=== PATIENT | male | born 1955 | race Caucasian/White ===

== ENCOUNTER 2016-12-27 20:41 | Observation (INO) | payer OTHER ==
--- NOTE | 2016-12-27 20:52 | PDOC ---
History of Present Illness - General History Source: Patient Exam Limitations: No Limitations <Destiney Pruitt - Last Filed: 12/27/16 21:22> - General History Source: Patient Exam Limitations: No Limitations - History of Present Illness Beta Erlin given by EMS (Core Measure): No (bradycardia at 53/min) <Genaro Spears I - Last Filed: 12/27/16 22:16> - General Chief Complaint: Chest Pain Stated Complaint: CP/DIZZINESS Time Seen by Provider: 12/27/16 20:43 - History of Present Illness Initial Comments: 12/27/16 21:14 The patient is a 61 year old male, with a significant past medical history of NJ in 2012, 4 stents, hypertension, and hyperlipidemia, who presents to the emergency department with complaints of chest pain and dizziness. The patient reports that today at 6:30pm he began feeling dizzy and experienced some chest pain. He states that the chest pain was midsternal in location and lasted 5-10 minutes before resolving. He reports that his dizziness is a combination of the sensation of the room spinning, him spinning, and feeling as if he is going to pass out. The patient reports that he exercised yesterday and was at his baseline and felt fine. He notes that he has experienced the same symptoms 4 years ago and had his first heart attack at age 37. Upon presentation to the ED his chest pain has resolved but he reports that he is still very dizzy and that the room is spinning. He notices that when he turns his head in either direction the dizziness is worsened. He reports that he experienced shortness of breath when he was walking down the stairs to come into the emergency room. He denies fever, chills, cough, hemoptysis, diaphoresis, nausea, vomit, diarrhea and constipation. PAST MEDICAL HISTORY: reviewed PAST SURGICAL HISTORY: Angioplasty in FAMILY HISTORY: family history of heart attacks SOCIAL HISTORY: Pt lives with family and is employed. Never smoked. MEDICATIONS: reviewed ALLERGIES: bacitracin, bacitracin zinc, neomycin sulfate, polymyxin B General: No fevers or chills, no weakness, no weight loss HEENT: No change in vision. No sore throat,. No ear pain CardioVascular: +Chest pain. +Shortness of breath. Respiratory:No cough, or wheezing. Gastrointestinal: no nausea, vomiting, diarrhea or constipation, No rectal bleeding Genitourinary: No dysuria, hematuria, or frequency Musculoskeletal: No joint or muscle pain or swelling Neurologic: +Dizziness No headache, vertigo or loss of consciousness Psychiatric: no depression Skin: No rashes or easy bruising Endocrine: no increased thirst or abnormal weight change Allergic: no skin or latex allergy All other systems reviewed and normal General: Well nourished well developed individual, no acute distress HEENT: Throat: Normal, tonsils normal, no erythema or exudate Neck: Supple, no meningeal signs, no lymphadenopathy Eyes:Pupils equal reactive and round, extraocular motion intact Chest: Nontender to palpation Cardiac: S1S2 normal, regular rate and rhythm, no murmurs rubs or gallops Respiratory: Lungs clear to auscultation bilateral Abdomen: Soft, nondistended, normal bowel sounds, nontender to palpation diffusely Extremities: Warm, dry, no cyanosis, clubbing, or edema Skin: No rashes Neuro: Alert and oriented x3, nonfocal exam, grossly intact, normal gait Psych: Normal mood and affect (Destiney Pruitt) 12/27/16 22:12 A portion of this note was documented by scribe services under my direction. I have reviewed the details of the note, within reason, and agree with the documentation. The case summary and management plan written by me. EKG sinus bradycardia at a rate of [address]-T wave changes nonspecific T- wave abnormality abnormal EKG however in comparison with prior EKG from a year ago no acute or significant changes Chest x-ray no acute pathology Head CT no acute intracranial pathology Assessment and plan This is a 61-year-old male who comes in complaining of chest pain and dizziness. Patient has an extensive cardiac history with NJ 2 in the past and 4 stents. Patient on exam did have some nystagmus to the left and his dizziness/ vertigo symptoms were exacerbated by movement. Patient had a head CT that was negative for any acute intracranial pathology. I think most likely his dizziness is secondary to vertigo rather than any intracranial pathology. However given patient's extensive cardiac history and a heart score of 4 even though his EKG is unchanged and he is initial troponin is negative patient will be admitted to an observation telemetry bed for additional monitoring and to rule him out. Hospitalist service Dr. Espinoza was contacted and has agreed to the admission. (Genaro Spears I) Past History <Destiney Pruitt - Last Filed: 12/27/16 21:22> - Past Medical History Anemia: No Asthma: No Cancer: No Cardiac Disorders: Yes (NJ & 2011) CVA: No COPD: No CHF: No Dementia: No Diabetes: No GI Disorders: Yes (GERD) Disorders: No HTN: Yes Hypercholesterolemia: Yes Liver Disease: No Seizures: No Thyroid Disease: No - Surgical History Abdominal Surgery: No Appendectomy: No Cardiac Surgery: Yes (ANGIOPLASTY , Stents 2011 & 2012) Cholecystectomy: No Lung Surgery: No Neurologic Surgery: No Orthopedic Surgery: Yes (Microdiscectomy L5-S1) - Psycho/Social/Smoking Cessation Hx Anxiety: No Suicidal Ideation: No Smoking Status: No Smoking History: Never smoked Have you smoked in the past 12 months: No Number of Cigarettes Smoked Daily: 0 Hx Alcohol Use: Yes (3-5/week) Drug/Substance Use Hx: No Substance Use Type: Alcohol Hx Substance Use Treatment: No <Genaro Spears I - Last Filed: 12/27/16 22:16> - Past Medical History Allergies/Adverse Reactions: Allergies Allergy/AdvReac Type Severity Reaction Status Date / Time bacitracin Allergy Verified 06/12/16 06:23 [From Neosporin ([id number])] bacitracin zinc Allergy Verified 06/12/16 06:23 [From Neosporin ([id number])] neomycin sulfate Allergy Verified 06/12/16 06:23 [From Neosporin ([id number])] polymyxin B Allergy Verified 06/12/16 06:23 [From Neosporin ([id number])] Home Medications: Ambulatory Orders Aspirin [ASA -] 325 mg PO DAILY 09/23/11 Carvedilol Phosphate [Coreg Cr -] 10 mg PO DAILY 09/23/11 Rosuvastatin [Crestor -] 30 mg PO DAILY 09/23/11 Trazodone HCl [Desyrel] 100 mg PO HS 09/23/11 Zolpidem Tartrate [Ambien] 2.5 mg PO HS 09/23/11 Esomeprazole Mag Trihydrate [Nexium] 40 mg PO DAILY 10/04/11 Irbesartan [Avapro] 75 mg PO DAILY 01/28/16 Naproxen Sodium [Aleve] 220 mg PO DAILY 12/27/16 Cardiac Specific PMH - Complaint Specific PMHX Pacemaker: No <Genaro Spears I - Last Filed: 12/27/16 22:16> - Vital Signs Last Vital Signs Temp Pulse Resp BP Pulse Ox 98.6 F 47 L 15 196/91 100 12/27/16 20:51 12/27/16 21:49 12/27/16 21:49 12/27/16 21:49 12/27/16 21:19 Heart Score/ECG Review - History History: Slightly suspicious - Electrocardiogram EKG: Non specific repolarization disturbance - Age Age: 45-65 - Risk Factors Risk Factors Heart Score: Yes Hx Hypercholesterolemia, Yes Hx Hypertension, Yes Positive family hx of cardiac disease Based on the list above the patient has:: >/=3 risk factors or Hx atherosclerotic disease - Troponin Troponin: </= normal limit - Score Heart Score - Total: 4 <Genaro Spears I - Last Filed: 12/27/16 22:16> ED Treatment Course - LABORATORY CBC & Chemistry Diagram: 12/27/16 21:01 12/27/16 21:01 <Destiney Pruitt - Last Filed: 12/27/16 21:22> - LABORATORY CBC & Chemistry Diagram: 12/27/16 21:01 12/27/16 21:01 <Genaro Spears I - Last Filed: 12/27/16 22:16> - ADDITIONAL ORDERS Additional order review: Laboratory Results 12/27/16 12/27/16 12/27/16 21:01 21:01 21:01 Sodium 140 Potassium 3.7 Chloride 106 Carbon Dioxide 26 Anion Gap 8 BUN 23 H D Creatinine 1.0 Creat Clearance w eGFR > 60 Random Glucose 98 Calcium 9.2 Total Bilirubin 0.6 D AST 27 D ALT 25 D Alkaline Phosphatase 49 D Creatine Kinase 185 H CK-MB (CK-2) Cancelled Troponin I < 0.03 L Total Protein 7.4 D Albumin 4.4 D 12/27/16 21:01 RBC 4.46 MCV 85.9 MCHC 34.1 RDW 13.5 MPV 8.4 Neutrophils % 65.3 Lymphocytes % 20.6 D Monocytes % 10.8 H Eosinophils % 2.6 Basophils % 0.7 - RADIOLOGY Radiology Studies Ordered: Category Date Time Status HEAD CT WITHOUT CONTRAST [CT] Stat CT Scan 12/27/16 21:02 Taken CHEST X-RAY PORTABLE* [RAD] Stat Radiology 12/27/16 21:02 Taken - Medications Given in the ED: ED Medications Discontinued Medications Generic Name Dose Route Start Last Admin Trade Name Cassidy PRN Reason Stop Dose Admin Meclizine HCl 50 mg 12/27/16 21:00 12/27/16 21:00 Antivert - PO 12/27/16 21:01 50 mg NOW ONE Administration *DC/Admit/Observation/Transfer <Destiney Pruitt - Last Filed: 12/27/16 21:22> - Discharge Dispostion Admit: Yes <Genaro Spears I - Last Filed: 12/27/16 22:16> Diagnosis at time of Disposition: Vertigo Chest pain Qualifiers: Chest pain type: unspecified Qualified Code(s): R07.9 - Chest pain, unspecified - Discharge Dispostion Condition at time of disposition: Stable - Attestations Scribe Attestion: 12/27/16 21:15 Documentation prepared by [employer], acting as medical transcription radiology for Genaro Spears MD. (Destiney Pruitt)
[2016-12-27] MEDS ORDERED: MECLIZINE HCL 25 MG TABLET (FP) ONE (20:57)
[2016-12-27] MEDS ORDERED: MECLIZINE HCL 25 MG TABLET (FP) PO ONE (21:00)
[2016-12-27 21:19] LABS: BASOPHIL 0.7 % (0-2.0); EOSINOPHIL 2.6 % (0-4.5); MCH 29.3 pg (25.7-33.7); MCHC 34.1 g/dl (32.0-35.9); MEAN CELL VOLUME 85.9 fl (80-96); MEAN PLT VOLUME 8.4 fl (7.5-11.1); NEUTROPHILS 65.3 % (42.8-82.8); PLATELET COUNT 193 K/MM3 (134-434); RDW 13.5 % (11.9-15.9); WHITE BLOOD COUNT 6.7 K/mm3 (4.0-10.8)
[2016-12-27 21:44] LABS: ALBUMIN 4.4 g/dl (3.5-5.0); ALK PHOS 49 U/L (32-92); ANION GAP 8 (8-16); BILIRUBIN,TOTAL 0.6 mg/dl (0.2-1.0); CALCIUM 9.2 mg/dl (8.4-10.2); CO2 26 mmol/L (22-28); COCKROFT - GAULT 83.43; GLUCOSE,RANDOM 98 mg/dl (74-106); SGOT/AST 27 U/L (10-42); SGPT/ALT 25 U/L (10-40); TOT PROT 7.4 g/dl (6.4-8.3)
[2016-12-27 21:45] LABS: CPK(DFH) 185 IU/L (38-174)
[2016-12-27 21:55] LABS: TROPONIN I (DFP) < 0.03 ng/ml (0.03-0.50)
[2016-12-27] MEDS ORDERED: amLODIPine BESYLATE 5 MG TABLET (FP) PO ONE (22:11)
[2016-12-27] MEDS ORDERED: amLODIPine BESYLATE 5 MG TABLET (FP) ONE ×2 (22:15→22:16)
[2016-12-27 22:21] LABS: CK MB 3.9 ng/ml (0.3-4.0)
--- NOTE | 2016-12-27 23:15 | HP ---
Admitting History and Physical - Admission Chief Complaint: dizziness History of Present Illness: 60-year-old male with a past medical history of an ID in 2011, and 4 stents, hypertension, and hyperlipidemia, colitis, chronic LBP, who presents to the ER for dizziness. He reports the dizziness is associated with walking and changing positions of his head. He reports feeling sob at one point. He reports burning sensation in his epigastric area. He also reports feeling squeezing sensation in his upper mid chest, 3/10 and states it wasn't "classic CP". He reports associated dry cough. He denies associated nausea, vomiting, diaphoresis, jaw claudication, numbness. He denies syncope, speech changes, double vision, facial droop, extremity weakness. He denies fevers, chills, body aches, runny nose, sore throat, hearing loss, ringing in ears. He reports feeling better after taking Meclizine in the ER. He reports recent dietary indiscretions and eating salty foods for a few days PMH/PSH- CAD, ID in 2011, S/P STENTS MOST RECENT 2.5 YEARS AGO, HTN, HLP, COLITIS, BACK PAIN. SOCIAL- DRINKS 2-3X WEEKLY. DENIES REC DRUGS OR TOBACCO. WORKS A PSYCHIATRIST. FAMHX- DAD- HEART DISEASE, RENAL DZ. MOM- BREAST CANCER. [place]- ORTHOPEDIC TROUBLES PCP- ZACHARIAH RICO CARDS- RAYSA MCDERMOTT ROS neg except for hpi Physical Gen- in nad, alert HENT- at/nc, chester, neck supple, trachea mid-line, mild erythema BL TM, no pharyngeal erythema, eomi Resp- lungs ctab, no rales, no ronchi, no wheezing Cards- S1S2 heard, no JVD, no leg edema, RRR Neuro- CN2-12 grossly intact, speech clear, no facial droop, neg romberg, no ftn ataxia, no dysdodiachokinesia, few beats of horizontal nystagmus Musk- Muscle strength 5/5 BUE/BLE, normal arom bue/ble Skin- no lesions, no erythema Gi- soft non-tender, no guarding, no rebound, no rigidity, no distention Psych- cooperative, no agitation Prob list Dizziness HTN CAD CP GERD IMaging: CXR reviewed ECG- Sinus sharon 54, nonspecific T wave abnormality, NO ELENA/STD A/P- 60-year-old male with a past medical history of an ID in 2011, and 4 stents , hypertension, and hyperlipidemia, colitis, chronic LBP, who presents to the ER for dizziness placed in obs for evaluation of their emergent condition 1. Dizziness ?labyrinthitis ? BPPV ?TIA CTH negative for acute process Given Meclizine 50mg in ER w good effect Neuro exam benign Neuro checks Prn Meclizine FU neurology consult 2. CP atypical, ? GERD, ?MUSK v R/O ACS 1st Trop negative CXR appears negative on by my eye Cycle trops Cardiac telemetry 3. CAD Continue ASA 4. HTN Continue home meds 5. GERD Cont Nexium 6. HLP Continue Statin DVT prophy SCD, OOB, likely less than 2 day stay FEN Heart healthy Dispo- obs for CP R/O History Source: Patient, Family Member Limitations to Obtaining History: No Limitations - Smoking History Smoking history: Never smoked Have you smoked in the past 12 months: No Aproximately how many cigarettes per day: 0 - Alcohol/Substance Use Hx Alcohol Use: Yes (3-5/week) Home Medications - Allergies Allergies/Adverse Reactions: Allergies Allergy/AdvReac Type Severity Reaction Status Date / Time bacitracin Allergy Verified 06/12/16 06:23 [From Neosporin ([id number])] bacitracin zinc Allergy Verified 06/12/16 06:23 [From Neosporin ([id number])] neomycin sulfate Allergy Verified 06/12/16 06:23 [From Neosporin ([id number])] polymyxin B Allergy Verified 06/12/16 06:23 [From Neosporin ([id number])] - Home Medications Home Medications: Ambulatory Orders Aspirin [ASA -] 325 mg PO DAILY 09/23/11 Carvedilol Phosphate [Coreg Cr -] 10 mg PO DAILY 09/23/11 Rosuvastatin [Crestor -] 30 mg PO DAILY 09/23/11 Trazodone HCl [Desyrel] 100 mg PO HS 09/23/11 Zolpidem Tartrate [Ambien] 2.5 mg PO HS 09/23/11 Esomeprazole Mag Trihydrate [Nexium] 40 mg PO DAILY 10/04/11 Irbesartan [Avapro] 75 mg PO DAILY 01/28/16 Naproxen Sodium [Aleve] 220 mg PO DAILY 12/27/16 Meclizine HCl 25 mg PO TID #30 tablet 12/28/16 Physical Examination Vital Signs: Vital Signs Temperature 98.6 F 12/27/16 20:51 Pulse Rate 50 L 12/27/16 22:15 Respiratory Rate 15 12/27/16 21:49 Blood Pressure 182/94 12/27/16 22:15 O2 Sat by Pulse Oximetry (%) 100 12/27/16 21:19 Visit type - Emergency Visit Emergency Visit: Yes ED Registration Date: 12/27/16 Care time: The patient presented to the Emergency Department on the above date and was hospitalized for further evaluation of their emergent condition. - New Patient This patient is new to me today: Yes Date on this admission: 12/28/16 - Critical Care Critical Care patient: No
[2016-12-27] MEDS ORDERED: ACETAMINOPHEN 325 MG TABLET (FP) PO PRN (23:31)
[2016-12-27] MEDS ORDERED: traMADol HCL 50 MG TABLET PO PRN (23:32)
[2016-12-27] MEDS ORDERED: ONDANSETRON 4 MG/2 ML VIAL IVPB PRN (23:32)
[2016-12-27] MEDS ORDERED: MECLIZINE HCL 25 MG TABLET (FP) PO PRN (23:34)
[2016-12-27 23:46] VITALS: BMI 23.9
[2016-12-28] MEDS ORDERED: ZOLPIDEM TARTRATE 5 MG TABLET PO ONE (00:01)
[2016-12-28] MEDS ORDERED: traZODone HCL 100 MG TABLET (FP) PO ONE (00:02)
[2016-12-28] MEDS ORDERED: ROSUVASTATIN CA 10 MG TABLET (FP) PO ONE (00:03)
[2016-12-28] MEDS ORDERED: traZODone HCL 50 MG TABLET (FP) ONE (00:12)
[2016-12-28 01:13] LABS: URINE APPEARANCE CLEAR; URINE BILIRUBIN NEGATIVE (NEGATIVE); URINE BLOOD NEGATIVE (NEGATIVE); URINE COLOR STRAW; URINE GLUCOSE (UA) NEGATIVE (NEGATIVE); URINE KETONE NEGATIVE (NEGATIVE); URINE LEUK ESTERASE NEGATIVE (NEGATIVE); URINE NITRITE NEGATIVE (NEGATIVE); URINE PROTEIN NEGATIVE (NEGATIVE); URINE UROBILINOGEN NEGATIVE E.U./dl (0.2-1.0)
[2016-12-28 08:00] LABS: BASOPHIL 0.6 % (0-2.0); EOSINOPHIL 2.9 % (0-4.5); MCH 30.1 pg (25.7-33.7); MCHC 34.6 g/dl (32.0-35.9); MEAN CELL VOLUME 87.1 fl (80-96); MEAN PLT VOLUME 8.5 fl (7.5-11.1); NEUTROPHILS 69.8 % (42.8-82.8); PLATELET COUNT 177 K/MM3 (134-434); RDW 13.4 % (11.9-15.9); WHITE BLOOD COUNT 6.3 K/mm3 (4.0-10.8)
[2016-12-28 08:11] LABS: CPK(DFH) 146 IU/L (38-174)
[2016-12-28 09:03] LABS: ANION GAP 9 (8-16); CO2 25 mmol/L (22-28); CREATININE 1.1 mg/dl (0.6-1.3); GLUCOSE,RANDOM 87 mg/dl (74-106)
[2016-12-28 09:05] LABS: TROPONIN I (DFP) < 0.03 ng/ml (0.03-0.50)
[2016-12-28] MEDS ORDERED: LOSARTAN POTASSIUM 50 MG TABLET (FP) PO SCH (10:00)
[2016-12-28] MEDS ORDERED: PANTOPRAZOLE 40 MG TABLET (FP) PO SCH (10:00)
[2016-12-28] MEDS ORDERED: ASPIRIN 325 MG TABLET PO SCH (10:00)
[2016-12-28] MEDS ORDERED: CARVEDILOL PHOSPHATE CR 10 MG CAPSULE PO SCH ×3 (10:00→23:00)
--- NOTE | 2016-12-28 11:54 | PN ---
Physical Exam: SUBJECTIVE: Patient seen and examined. Still has dizziness with movement, none at rest. States symptoms have improved with initiation of meclizine. OBJECTIVE: Observation day #1 for this 61 year old male with a history of HTN, HLD, CAD s/p stents x 4, colitis, and chronic LBP who presented with dizziness. Trops neg x 3, EKG non-ischemic. Bradycardic overnight, but states 40s-50s is normal for him. Vital Signs Period Temp Pulse Resp BP Sys/Capps Pulse Ox Last 24 Hr 98.1 F-98.3 F 53-55 16-18 137-166/49-78 99-99 GENERAL: The patient is awake, alert, and fully oriented, in no acute distress. HEAD: Normal with no signs of trauma. EYES: PERRL, extraocular movements intact, sclera anicteric, conjunctiva clear. No ptosis. ENT: Ears normal, nares patent, oropharynx clear without exudates, moist mucous membranes. NECK: Trachea midline, full range of motion, supple. LUNGS: Breath sounds equal, clear to auscultation bilaterally, no wheezes, no crackles, no accessory muscle use. HEART: Regular rate and rhythm, S1, S2 without murmur, rub or gallop. ABDOMEN: Soft, nontender, nondistended, normoactive bowel sounds, no guarding, no rebound, no hepatosplenomegaly, no masses. EXTREMITIES: 2+ pulses, warm, well-perfused, no edema. NEUROLOGICAL: Cranial nerves II through XII grossly intact. Normal speech, gait not observed. No dysarthria, dysmetria, or dysdiadochokinesis. Some lateral nystagmus. PSYCH: Normal mood, normal affect. SKIN: Warm, dry, normal turgor, no rashes or lesions noted Laboratory Results - last 24 hr 12/28/16 12/28/16 12/28/16 00:19 02:00 06:40 WBC 6.3 RBC 4.22 Hgb 12.7 Hct 36.8 MCV 87.1 MCHC 34.6 RDW 13.4 Plt Count 177 MPV 8.5 Neutrophils % 69.8 Lymphocytes % 19.4 Monocytes % 7.3 Eosinophils % 2.9 Basophils % 0.6 Sodium Potassium Chloride Carbon Dioxide Anion Gap BUN Creatinine Random Glucose Calcium Creatine Kinase Troponin I < 0.02 Urine Color Straw Urine Appearance Clear Urine pH 7.0 Urine Protein Negative Urine Glucose (UA) Negative Urine Ketones Negative Urine Blood Negative Urine Nitrite Negative Urine Bilirubin Negative Urine Urobilinogen Negative Ur Leukocyte Esterase Negative 12/28/16 12/28/16 06:40 06:40 WBC RBC Hgb Hct MCV MCHC RDW Plt Count MPV Neutrophils % Lymphocytes % Monocytes % Eosinophils % Basophils % Sodium 143 Potassium 4.3 Chloride 109 H Carbon Dioxide 25 Anion Gap 9 BUN 19 H Creatinine 1.1 Random Glucose 87 Calcium 9.0 Creatine Kinase 146 Troponin I < 0.03 L Urine Color Urine Appearance Urine pH Urine Protein Urine Glucose (UA) Urine Ketones Urine Blood Urine Nitrite Urine Bilirubin Urine Urobilinogen Ur Leukocyte Esterase Active Medications Generic Name Dose Route Start Last Admin Trade Name Freq PRN Reason Stop Dose Admin Acetaminophen 650 mg 12/27/16 23:31 Tylenol - PO Q4H PRN FEVER OR PAIN Aspirin 325 mg 12/28/16 10:00 12/28/16 10:02 Asa - PO 325 mg DAILY RACHEL Administration Carvedilol 10 mg 12/28/16 22:00 Coreg Cr - PO DAILY RACHEL Losartan Potassium 50 mg 12/28/16 10:00 12/28/16 10:01 Cozaar - PO 50 mg DAILY RACHEL Administration Meclizine HCl 25 mg 12/27/16 23:34 Antivert - PO BID PRN VERTIGO Ondansetron HCl 4 mg 12/27/16 23:32 Zofran Injection IVPB Q4H PRN NAUSEA AND/OR VOMITING Pantoprazole Sodium 40 mg 12/28/16 10:00 12/28/16 10:01 Protonix - PO 40 mg DAILY RACHEL Administration Rosuvastatin Calcium 30 mg 12/28/16 23:00 Crestor - PO DAILY RACHEL Tramadol HCl 50 mg 12/27/16 23:32 Ultram - PO Q6H PRN MUSCLE SPASMS Trazodone HCl 100 mg 12/28/16 23:00 Desyrel - PO HS RACHEL Zolpidem Tartrate 2.5 mg 12/28/16 23:00 Ambien - PO HS PRN ASSESSMENT/PLAN: 60-year-old male placed in observation for dizziness. Imaging: CXR: No acute pathology ECG- Sinus sharon 54, nonspecific T wave abnormality HCT: No acute intracranial process 1. NEURO: Dizziness -Differential includes BPPV, also must consider cerebellar stroke in this man with HTN and CAD -HCT negative -Orthostatics negative -Discussed with Dr. Fields- will evaluate patient -Continue Meclizine prn 2. 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 GI: GERD -Cont Nexium 4. F/E/N -Heart healthy diet 5. Ppx -SCDs -OOB Dispo: Pending neuro consult. Visit type - Emergency Visit Emergency Visit: Yes ED Registration Date: 12/27/16 Care time: The patient presented to the Emergency Department on the above date and was hospitalized for further evaluation of their emergent condition. - New Patient This patient is new to me today: Yes Date on this admission: 12/28/16 - Critical Care Critical Care patient: No
[2016-12-28 12:18] VITALS: BP 153/78; PULSE 56
[2016-12-28 13:53] VITALS: TEMP 98.8
--- NOTE | 2016-12-28 14:35 | DS ---
Physical Exam: SUBJECTIVE: Patient seen and examined. See progress note from early today. OBJECTIVE: Vital Signs Period Temp Pulse Resp BP Sys/Capps Pulse Ox Last 24 Hr 98.1 F-98.8 F 53-56 16-18 137-166/49-83 99-99 PHYSICAL EXAM GENERAL: The patient is awake, alert, and fully oriented, in no acute distress. HEAD: Normal with no signs of trauma. EYES: PERRL, extraocular movements intact, sclera anicteric, conjunctiva clear. ENT: Ears normal, nares patent, oropharynx clear without exudates, moist mucous membranes. NECK: Trachea midline, full range of motion, supple. LUNGS: Breath sounds equal, clear to auscultation bilaterally, no wheezes, no crackles, no accessory muscle use. HEART: Regular rate and rhythm, S1, S2 without murmur, rub or gallop. ABDOMEN: Soft, nontender, nondistended, normoactive bowel sounds, no guarding, no rebound, no hepatosplenomegaly, no masses. EXTREMITIES: 2+ pulses, warm, well-perfused, no edema. NEUROLOGICAL: Cranial nerves II through XII grossly intact. Normal speech, gait not observed. Mild lateral nystagmus. PSYCH: Normal mood, normal affect. SKIN: Warm, dry, normal turgor, no rashes or lesions noted. LABS Laboratory Results - last 24 hr 12/28/16 12/28/16 12/28/16 00:19 02:00 06:40 WBC 6.3 RBC 4.22 Hgb 12.7 Hct 36.8 MCV 87.1 MCHC 34.6 RDW 13.4 Plt Count 177 MPV 8.5 Neutrophils % 69.8 Lymphocytes % 19.4 Monocytes % 7.3 Eosinophils % 2.9 Basophils % 0.6 Sodium Potassium Chloride Carbon Dioxide Anion Gap BUN Creatinine Random Glucose Calcium Creatine Kinase Troponin I < 0.02 Urine Color Straw Urine Appearance Clear Urine pH 7.0 Urine Protein Negative Urine Glucose (UA) Negative Urine Ketones Negative Urine Blood Negative Urine Nitrite Negative Urine Bilirubin Negative Urine Urobilinogen Negative Ur Leukocyte Esterase Negative 12/28/16 12/28/16 06:40 06:40 WBC RBC Hgb Hct MCV MCHC RDW Plt Count MPV Neutrophils % Lymphocytes % Monocytes % Eosinophils % Basophils % Sodium 143 Potassium 4.3 Chloride 109 H Carbon Dioxide 25 Anion Gap 9 BUN 19 H Creatinine 1.1 Random Glucose 87 Calcium 9.0 Creatine Kinase 146 Troponin I < 0.03 L Urine Color Urine Appearance Urine pH Urine Protein Urine Glucose (UA) Urine Ketones Urine Blood Urine Nitrite Urine Bilirubin Urine Urobilinogen Ur Leukocyte Esterase HOSPITAL COURSE: This 61 year old male with a history of HTN, HLD, CAD s/p stents x 4, colitis, and chronic LBP who was admitted on 12/27 with dizziness. Hospital course was notable for: -EKG without ischemic changes -Troponins negative x 3 -HCT with no acute intracranial process -Sinus bradycardia, baseline per patient -Symptoms improved with Meclizine. The patient was evaluated by neurology and outpatient MRI brain and angiogram of the posterior fossa was arranged. He is ambulating independently and eager to be discharged. Followup instructions and return precautions were reviewed. Date of Admission:12/27/16 Date of Discharge: 12/28/16 Minutes to complete discharge: 35 Discharge Summary Reason For Visit: CP/DIZZINESS Current Active Problems Chest pain (Acute) Vertigo (Acute) Condition: Improved - Instructions Diet, Activity, Other Instructions: -Rest and stay well-hydrated -Continue all of your prescribed medications -Take Meclizine as needed for dizziness -Obtain your MRI scan as discussed before leaving for vacation -Return here for sudden/severe headache, worsening dizziness, focal weakness, abnormal gait, changes in speech, or any other concerning symptoms Referrals: Logan Fields MD [Staff Physician] - 2 Weeks Disposition: HOME - Home Medications Comprehensive Discharge Medication List: Ambulatory Orders Aspirin [ASA -] 325 mg PO DAILY 09/23/11 Carvedilol Phosphate [Coreg Cr -] 10 mg PO DAILY 09/23/11 Rosuvastatin [Crestor -] 30 mg PO DAILY 09/23/11 Trazodone HCl [Desyrel] 100 mg PO HS 09/23/11 Zolpidem Tartrate [Ambien] 2.5 mg PO HS 09/23/11 Esomeprazole Mag Trihydrate [Nexium] 40 mg PO DAILY 10/04/11 Irbesartan [Avapro] 75 mg PO DAILY 01/28/16 Naproxen Sodium [Aleve] 220 mg PO DAILY 12/27/16 This patient is new to me today: No Emergency Visit: Yes ED Registration Date: 12/27/16 Care time: The patient presented to the Emergency Department on the above date and was hospitalized for further evaluation of their emergent condition. Critical Care patient: No - Discharge Referral Referred to [facility] No
--- NOTE | 2016-12-28 14:52 | CONSULT ---
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 Maintained on carvedilol, amlodipine, losartan, crestor, pantoprazole, ASA ( 325mg) and trazodone and zolpidem for chronic insomnia. Yesterday, during choral rehearsal, he had the sudden onset of dizziness, He felt the environment moving or oscillating. He was unsteady and sl. nauseous. Improved with rest but recurred with movement. Improved on meclizine (but has a foggy feeling in his head today). No tinnitus. No hearing loss. Elevated BP's in the ER CT of head (reviewed): Normal study. Some calcification of the basilar artery. PURNIMA: No bruits. Cor reg. No head trauma. NEURO: MS/Speech: Normal CN II-XII: Few beats of fine, conjugate nysstagmus on R gaze. Otherwise normal Motor: No drift or tremor. Normal strength, tone , bulk and reflexes. Toes are downgoing. No FTN or HTS dystaxia Sensory: Normal. Romberg neg. Gait: Sl wide-based but stable IMP: Non-focal neurological exam. Probably labyrinthitis, Cannot r/o posterior fossa TIA. SUGGEST: OK to D/C on meclizine. Will have MRI and MR Angio as out patient this week. Continue ASA for now. Thank you very much, Logan Fields MD
[2016-12-28] MEDS ORDERED: traZODone HCL 100 MG TABLET (FP) PO SCH (23:00)
[2016-12-28] MEDS ORDERED: ROSUVASTATIN CA 10 MG TABLET (FP) PO SCH (23:00)
[2016-12-28] MEDS ORDERED: ZOLPIDEM TARTRATE 5 MG TABLET PO PRN (23:00)
--- NOTE | 2016-12-30 09:05 | EKG ---
Test Reason : Blood Pressure : / mmHG Vent. Rate : 054 BPM Atrial Rate : 054 BPM P-R Int : 174 ms QRS Dur : 084 ms QT Int : 458 ms P-R-T Axes : 077 031 -15 degrees QTc Int : 434 ms SINUS BRADYCARDIA NONSPECIFIC T WAVE ABNORMALITY NO PREVIOUS ECGS AVAILABLE Confirmed by MD ISMAEL, FABIANO ([id number]) on 12/30/2016 9:05:07 AM Referred By: Brian ADAMS Confirmed By:FABIANO GUEVARA MD
== END 2016-12-28 14:56 | disposition home or self-care (01) ==
LOC: FER 20:41 → FM/S 22:23
PROVIDERS: ADMIT Internal Medicine; ATTEND Registered Nurse Emergency
DX: R07.89 Other chest pain (principal); R42 Dizziness and giddiness; I10 Essential (primary) hypertension; I25.10 Atherosclerotic heart disease of native coronary artery without angina pectoris; I25.2 Old myocardial infarction; E78.5 Hyperlipidemia, unspecified; Z95.5 Presence of coronary angioplasty implant and graft; K21.9 Gastro-esophageal reflux disease without esophagitis; R00.1 Bradycardia, unspecified; Z79.82 Long term (current) use of aspirin; M54.5 Low back pain; G89.29 Other chronic pain
CPT/HCPCS: 36415; 70450-TC; 71010-TC; 80048; 80053; 81003; 82550; 82553; 84484; 85025; 87254; 87804; 93005; 99285-25; G0378

== ENCOUNTER 2017-10-13 10:39 | Emergency (ER) | payer OTHER ==
[2017-10-13 10:48] VITALS: TEMP 98.2; BMI 23.3
[2017-10-13] MEDS ORDERED: SODIUM CHLORIDE 0.9% 1000 ML INFUS.BAG IV ONE (11:39)
--- NOTE | 2017-10-13 11:44 | PDOC ---
History of Present Illness - General Chief Complaint: Chest Pain Stated Complaint: DIZZINESS, CHEST PAIN Time Seen by Provider: 10/13/17 10:43 - History of Present Illness Initial Comments: 10/13/17 11:41 Chief complaint positional lightheadedness History of present illness: This is a 62-year-old gentleman with past medical history significant for coronary artery disease status post DE 2 status post 4 stents, hypertension, positive family history for coronary artery disease presents to the emergency department with several day history of positional lightheadedness. Patient states he feels foggy lightheaded when he stands up. Has checked his blood pressure at home there is been a significant drop in his blood pressure. Patient also complaining of some intermittent chest discomfort. Fleeting few seconds at a time left-sided nonradiating sometimes substernal. No associated nausea or vomiting. Patient has been playing tennis recently and there has been no exertional component to his chest discomfort. Past History - Past Medical History Allergies/Adverse Reactions: Allergies Allergy/AdvReac Type Severity Reaction Status Date / Time bacitracin Allergy Verified 10/13/17 10:41 [From Neosporin ([id number])] bacitracin zinc Allergy Verified 10/13/17 10:41 [From Neosporin ([id number])] neomycin sulfate Allergy Verified 10/13/17 10:41 [From Neosporin ([id number])] polymyxin B Allergy Verified 10/13/17 10:41 [From Neosporin ([id number])] Home Medications: Ambulatory Orders Amlodipine Besylate 5 mg PO BID 10/13/17 Aspirin [Aspirin EC] 325 mg PO DAILY 10/13/17 Carvedilol Phosphate [Coreg Cr -] 10 mg PO DAILY 10/13/17 Esomeprazole Magnesium [Nexium 24Hr] 40 mg PO HS 10/13/17 Irbesartan [Avapro] 150 mg PO DAILY 10/13/17 Meloxicam 15 mg PO HS 10/13/17 Pregabalin [Lyrica] 50 mg PO HS 10/13/17 Rosuvastatin Calcium [Crestor] 40 mg PO DAILY 10/13/17 Trazodone HCl 100 mg PO HS 10/13/17 Anemia: No Asthma: No Cancer: No Cardiac Disorders: Yes (DE & 2011) CVA: No COPD: No CHF: No Dementia: No Diabetes: No GI Disorders: Yes (GERD) Disorders: No HTN: Yes Hypercholesterolemia: Yes Liver Disease: No Seizures: No Thyroid Disease: No Other medical history: BACK PAIN - Surgical History Abdominal Surgery: No Appendectomy: No Cardiac Surgery: Yes (ANGIOPLASTY , Stents 2011 & 2012) Cholecystectomy: No Lung Surgery: No Neurologic Surgery: No Orthopedic Surgery: Yes (Microdiscectomy L5-S1) - Suicide/Smoking/Psychosocial Hx Smoking Status: No Smoking History: Never smoked Have you smoked in the past 12 months: No Number of Cigarettes Smoked Daily: 0 Hx Alcohol Use: (2-3 glasses of wine weekly) Drug/Substance Use Hx: No Substance Use Type: Alcohol Hx Substance Use Treatment: No Review of Systems - Review of Systems Comments:: 10/13/17 11:41 ROS: A complete review of 10 out of 10 review of systems is taken and is negative apart from what is previously mentioned below and in the HPI. *Physical Exam - Vital Signs Last Vital Signs Temp Pulse Resp BP Pulse Ox 98.2 F 50 L 16 124/81 100 10/13/17 10:40 10/13/17 11:30 10/13/17 11:30 10/13/17 11:30 10/13/17 11:30 - Physical Exam Comments: 10/13/17 11:42 62 years old past medical history significant coronary artery disease presents to the ED with orthostatic lightheadedness and atypical chest discomfort Given patient's extensive cardiac history differential diagnosis includes ACS, medication adverse effect, dehydration, orthostasis No PE DVT risk factors We'll obtain EKG blood work hydrate and reassess Heart Score/ECG Review - ECG Impressions Comment:: 10/13/17 11:45 EKG performed at 10:[address] elevations or T-wave inversions. Sinus rhythm rate 54 axis normal. EKG compared to previous EKG no changes noted Interpreted by me ED Treatment Course - LABORATORY CBC & Chemistry Diagram: 10/13/17 11:15 10/13/17 11:15 - RADIOLOGY Radiology Studies Ordered: Category Date Time Status CXRPORT [CHEST X-RAY PORTABLE*] [RAD] Stat Radiology 10/13/17 10:46 Taken Medical Decision Making - Critical Care Time Total Critical Care Time (minutes): 35 Critical Care Statement: The care of this patient involved high complexity decision making to prevent further life threatening deterioration of the patient 's condition and/or to evaluate & treat vital organ system(s) failure or risk of failure. - Medical Decision Making 10/13/17 14:57 62 years old coronary artery disease with stents presents to the ED with positional lightheadedness for the last 10 days. Worse today. Patient instructed blood pressure at home and when he stands up it dips. Patient also mentioned very atypical nonspecific seconds of left-sided chest discomfort no associated nausea vomiting diarrhea does not feel at all like his previous MIs Given his cardiac history we'll check an EKG troponin orthostatics labs hydrate chest x-ray and reassess Reevaluation patient ambulate comfortably around the ED lightheadedness has improved with IV fluids His vital signs were notable for orthostasis His EKG is unchanged from a previous and his troponin is negative. His heart score is 3 given his significant cardiac history we'll send a repeat troponin if negative patient to follow-up tomorrow with his shuttle spotter Troponin negative 2 very atypical chest pain story patient's primary complaint was lightheadedness which correlated with orthostatic hypotension Very low suspicion for cardiac etiology in this patient Patient will follow-up with his shuttle spotter tomorrow Findings, the need for follow-up and strict return instructions discussed with patient. *DC/Admit/Observation/Transfer Diagnosis at time of Disposition: Orthostatic hypotension - Discharge Dispostion Disposition: HOME Condition at time of disposition: Stable Admit: No - Referrals - Patient Instructions Printed Discharge Instructions: Orthostatic Hypotension Additional Instructions: Take all medications as prescribed. Drink plenty fluids. Follow up with the shuttle spotter tomorrow. Return to the emergency department immediately for any severe worsening chest pain severe worsening dizziness lightheadedness or for any concerns. - Post Discharge Activity
[2017-10-13 12:01] LABS: BASO % 1.1 % (0-2.0); EOS % 2.9 % (0-4.5); HEMATOCRIT 37.1 % (35.4-49); HEMOGLOBIN 12.7 GM/dl (11.7-16.9); LYMPH % 14.5 % (8-40); MCH 29.6 pg (25.7-33.7); MCHC 34.2 g/dl (32.0-35.9); MEAN CELL VOLUME 86.8 fl (80-96); MEAN PLT VOLUME 8.6 fl (7.5-11.1); MONO % 8.2 % (3.8-10.2); NEUT % 73.3 % (42.8-82.8); PLATELET COUNT 195 K/MM3 (134-434); RBC 4.28 M/mm3 (4.00-5.60); RDW 12.9 % (11.9-15.9); WHITE BLOOD COUNT 5.5 K/mm3 (4.0-10.8)
[2017-10-13 12:08] LABS: ANION GAP 3 (8-16); BLOOD UREA NITROGEN 20 mg/dl (7-18); CALCIUM 9.4 mg/dl (8.4-10.2); CHLORIDE 106 mmol/L (98-107); CO2 27 mmol/L (22-28); CREATININE 1.1 mg/dl (0.6-1.3); GLUCOSE,RANDOM 122 mg/dl (74-106); POTASSIUM 4.6 mmol/L (3.5-5.1); SODIUM 136 mmol/L (136-145)
[2017-10-13 15:45] VITALS: BP 132/58; PULSE 60
--- NOTE | 2017-10-14 07:55 | EKG ---
Test Reason : Blood Pressure : / mmHG Vent. Rate : 054 BPM Atrial Rate : 054 BPM P-R Int : 180 ms QRS Dur : 076 ms QT Int : 446 ms P-R-T Axes : 072 029 -02 degrees QTc Int : 422 ms SINUS BRADYCARDIA NONSPECIFIC ST AND T WAVE ABNORMALITY WHEN COMPARED WITH ECG OF 27-DEC-2016 20:44, NONSPECIFIC ST AND T WAVE ABNORMALITY are no longer present in V5-6 Confirmed by ADALGISA TIRADO, DAVIAN ([id number]) on 10/14/2017 7:54:30 AM Referred By: MADALYN BENITEZ Confirmed By:DAVIAN DIANA MD
== END 2017-10-13 15:45 | disposition home or self-care (01) ==
LOC: FER 10:39
PROC: 3E0337Z Introduction of Electrolytic and Water Balance Substance into Peripheral Vein, Percutaneous Approach (ICD-10-PCS; principal; 2017-10-13)
DX: I95.1 Orthostatic hypotension (principal); I10 Essential (primary) hypertension; I25.10 Atherosclerotic heart disease of native coronary artery without angina pectoris; I25.2 Old myocardial infarction; Z95.5 Presence of coronary angioplasty implant and graft; Z88.1 Allergy status to other antibiotic agents; Z79.82 Long term (current) use of aspirin
CPT/HCPCS: 36415; 71045-TC-FY; 80048; 84484; 85025; 93005; 99285-25

== ENCOUNTER 2021-05-19 17:35 | Emergency (ER) | payer OTHER ==
[2021-05-19 17:49] VITALS: TEMP 98.1; BMI 23.7
[2021-05-19 18:36] LABS: ACTIVATED PTT 31.1 SECONDS (25.2-36.5)
[2021-05-19 18:40] LABS: ALBUMIN 4.3 g/dl (3.4-5.0); ALK PHOS 36 U/L (45-117); ANION GAP 12 MMOL/L (8-16); BILIRUBIN,TOTAL 1.3 mg/dl (0.2-1); CALCIUM 8.9 mg/dl (8.5-10); CHLORIDE 102 mmol/L (98-107); CO2 25 mmol/L (21-32); CREATININE 1.2 mg/dl (0.55-1.3); GLUCOSE,RANDOM 132 mg/dl (74-106); SGOT/AST 31 U/L (15-37); SGPT/ALT 24 U/L (13-61); SODIUM 139 mmol/L (136-145); TOT PROT 6.6 g/dl (6.4-8.2)
[2021-05-19 18:40] LABS: INR 1.27 (0.82-1.09); PROTHROMBIN TIME (PATIENT) 14.2 SEC (10.2-13.0)
[2021-05-19 19:54] LABS: BASO % 0.5 % (0-2.0); EOS % 3.1 % (0-4.5); HEMATOCRIT 38.4 % (35.4-49); HEMOGLOBIN 12.9 GM/dL (11.7-16.9); LYMPH % 21.5 % (8-40); MCH 29.7 pg (25.7-33.7); MCHC 33.7 g/dl (32.0-35.9); MEAN PLT VOLUME 8.6 fl (7.5-11.1); MONO % 8.8 % (3.8-10.2); NEUT % 66.1 % (42.8-82.8); PLATELET COUNT 175 10^3/uL (134-434); RBC 4.36 M/mm3 (4.00-5.60); RDW 14.2 % (11.9-15.9); WHITE BLOOD COUNT 6.2 K/mm3 (4.0-10.0)
[2021-05-19 20:04] VITALS: BP 135/68; PULSE 50
== END 2021-05-19 20:45 | disposition home or self-care (01) ==
LOC: FER 17:35 → SUPCPDRO 17:35 → FER 20:45
DX: R04.0 Epistaxis (principal)
CPT/HCPCS: 36415; 71275-TC; 80053; 82550; 82553; 84484; 85025; 85610; 85730; 86850; 86900; 86901; 93005; 99285-25; C9803; Q9967; U0003; U0005

== ENCOUNTER 2021-12-31 12:30 | Emergency (ER) | payer OTHER ==
[2021-12-31] MEDS ORDERED: ACETAMINOPHEN 1000 MG/100 ML BAG IVPB ONE (12:36)
[2021-12-31] MEDS ORDERED: LACTATED RINGERS SOLUTION 1000 ML INFUS.BAG IV ONE (12:36)
[2021-12-31 12:38] VITALS: TEMP 97.7; BMI 24.1
[2021-12-31 13:23] LABS: ALBUMIN 4.5 g/dl (3.4-5.0); BILIRUBIN,TOTAL 1.4 mg/dl (0.2-1); CALCIUM 9.7 mg/dl (8.5-10); TOT PROT 7.3 g/dl (6.4-8.2)
[2021-12-31 13:25] LABS: HEMATOCRIT 41.2 % (35.4-49); HEMOGLOBIN 14.1 G/dL (11.7-16.9); MCH 29.7 pg (25.7-33.7); MCHC 34.2 g/dl (32.0-35.9); MEAN CELL VOLUME 86.8 fl (80-96); MEAN PLT VOLUME 8.2 fl (7.5-11.1); PLATELET COUNT 189.7 10^3/uL (134-434); RBC 4.75 10^6/uL (4.00-5.60); RDW 15.4 % (11.9-15.9)
[2021-12-31 16:55] VITALS: BP 151/81; PULSE 56
== END 2021-12-31 16:55 | disposition home or self-care (01) ==
LOC: FER 12:30
PROC: 3E033GC Introduction of Other Therapeutic Substance into Peripheral Vein, Percutaneous Approach (ICD-10-PCS; principal; 2021-12-31)
DX: R42 Dizziness and giddiness (principal)
CPT/HCPCS: 36415; 71046-TC-FY; 80053; 84484; 85025; 93005; 96374; 99285-25

== ENCOUNTER 2022-11-21 11:22 | Observation (INO) | payer OTHER ==
[2022-11-21 11:51] VITALS: TEMP 98.2; BMI 24.1
[2022-11-21 12:47] LABS: INR 1.2 (0.83-1.09); PROTHROMBIN TIME (PATIENT) 13.8 SEC (9.7-13.0)
[2022-11-21 12:50] LABS: ACTIVATED PTT 33.2 SECONDS (25.2-36.5)
[2022-11-21 12:55] LABS: ALBUMIN 4.3 g/dl (3.4-5.0); BILIRUBIN,TOTAL 1.3 mg/dl (0.2-1); CALCIUM 9.4 mg/dl (8.5-10); CREATININE 1.2 mg/dl (0.55-1.3); TOT PROT 6.9 g/dl (6.4-8.2)
[2022-11-21] MEDS ORDERED: ASPIRIN 81 MG CHEWABLE TABLETS PO ONE (14:57)
[2022-11-21] MEDS ORDERED: PANTOPRAZOLE 40 MG TABLET PO SCH (15:15)
[2022-11-21 15:34] LABS: MAGNESIUM 2.2 mg/dL (1.8-2.4)
[2022-11-21] MEDS ORDERED: PANTOPRAZOLE 40 MG TABLET PO ONE (15:45)
[2022-11-21 15:58] VITALS: BP 132/68; PULSE 54; RESP 14
[2022-11-21 16:41] LABS: HEMOGLOBIN 12.5 GM/dL (11.7-16.9); MCH 29.5 pg (25.7-33.7); MCHC 34.6 g/dl (32.0-35.9); MEAN CELL VOLUME 85.2 fl (80-96); MEAN PLT VOLUME 8.4 fl (7.5-11.1); PLATELET COUNT 173 10^3/uL (134-434); RBC 4.22 M/mm3 (4.00-5.60); RDW 13.9 % (11.9-15.9); WHITE BLOOD COUNT 7.3 K/mm3 (4.0-10.0)
[2022-11-21 17:18] LABS: N-TERMINAL BNP 30.8 pg/ml (5-125)
[2022-11-21 17:31] LABS: ANISOCYTOSIS 1+; MACROCYTOSIS 0
[2022-11-21 18:37] LABS: METHADONE, UR NEGATIVE (NEGATIVE); OPIATES, URI NEGATIVE (NEGATIVE); URINE BARBITURATES NEGATIVE (NEGATIVE); URINE BENZODIAZEPINES NEGATIVE (NEGATIVE)
[2022-11-21 18:39] LABS: PHENCYCLIDINE,URINE NEGATIVE (NEGATIVE); URINE AMPHETAMINES NEGATIVE (NEGATIVE)
[2022-11-21 18:40] LABS: COCAINE, UR NEGATIVE (NEGATIVE)
[2022-11-21] MEDS ORDERED: ROSUVASTATIN CA 20 MG TABLET PO SCH (22:00)
== END 2022-11-21 19:00 | disposition left against medical advice (07) ==
LOC: FER 11:22 → FM/S 15:32
DX: I25.10 Atherosclerotic heart disease of native coronary artery without angina pectoris (principal); I10 Essential (primary) hypertension; E78.5 Hyperlipidemia, unspecified; Z95.5 Presence of coronary angioplasty implant and graft; Z88.8 Allergy status to other drugs, medicaments and biological substances
CPT/HCPCS: 0241U-QW; 36415; 71045-TC-FY; 80053; 80061; 80307; 83036; 83735; 83880; 84439; 84443; 84484; 85027; 85610; 85730; 93005; 93306-TC; 99285-25; G0378

== ENCOUNTER 2023-07-03 17:51 | Emergency (ER) | payer OTHER ==
[2023-07-03 18:14] VITALS: BP 160/70; PULSE 50; RESP 18; TEMP 97.4; BMI 22.8
== END 2023-07-03 19:27 | disposition home or self-care (01) ==
LOC: FER 17:51
PROC: 0T2BX0Z Change Drainage Device in Bladder, External Approach (ICD-10-PCS; principal; 2023-07-03)
DX: R33.9 Retention of urine, unspecified (principal); R10.30 Lower abdominal pain, unspecified
CPT/HCPCS: 81003; 87086; 99283-25